=== PATIENT | female | born 1965 | race Two or more races ===

== ENCOUNTER → 2017-11-14 09:11 | Outpatient (CLI) | payer OTHER | END | disposition home or self-care (01) | LOC: LAB 09:11 | DX: N91.2 Amenorrhea, unspecified (principal); N95.1 Menopausal and female climacteric states; R19.00 Intra-abdominal and pelvic swelling, mass and lump, unspecified site; Z34.90 Encounter for supervision of normal pregnancy, unspecified, unspecified trimester; N39.0 Urinary tract infection, site not specified; E55.9 Vitamin D deficiency, unspecified ==

== ENCOUNTER → 2017-11-14 | Outpatient (CLI) | payer OTHER ==
[~2017-11-14] MED LIST: AMOX1TAB12 PO; CELEBREX100 MG PO; DEPAKOTE ER500 MG; DIAZEPAM10 MG PO; DOCUSATE SODIU100 MG PO; NEURONTIN800 MG; NORFLEX100 MG PO; PERCOCET 10-3251 TAB; PERCOCET 5/3251 TAB PO; PROVENTYL; SEROQUEL400 MG; SKELAXIN800 MG PO; TESSALON PERLE100 M1 PO; TORADOL10 MG PO; TUSSIONEX PENNKI5 ML PO; [UNRECOGNIZED DRUG - OTHER]
== END | disposition home or self-care (01) ==
LOC: MAMO-SONO 10:12
DX: Z12.31 Encounter for screening mammogram for malignant neoplasm of breast (principal); Z87.898 Personal history of other specified conditions; N63.20 Unspecified lump in the left breast, unspecified quadrant

== ENCOUNTER 2017-12-13 11:35 | Outpatient (CLI) | payer OTHER | END 2017-12-13 11:42 | disposition home or self-care (01) | LOC: MAMO-SONO 11:35 | DX: N62 Hypertrophy of breast (principal) ==

== ENCOUNTER 2018-01-24 10:53 | Outpatient (CLI) | payer OTHER | END 2018-01-24 17:00 | disposition home or self-care (01) | LOC: MRI 10:53 | DX: R51 Headache (principal) | CPT/HCPCS: 70553; A9579 ==

== ENCOUNTER 2018-04-15 08:05 | Emergency (ER) | payer OTHER ==
[~2018-04-15] VITALS: Ht 157.5 cm; Wt 63.5 kg
[2018-04-15] MEDS ORDERED: CARAFATE1 GM (08:24)
[2018-04-15] MEDS ORDERED: CLARITHROMYCIN500 MG (08:25)
[2018-04-15] MEDS ORDERED: OXCARBAZEPINE300 MG (08:25)
[2018-04-15] MEDS ORDERED: ESGIC 50-325-41 EACH (08:25)
[2018-04-15] MEDS ORDERED: TOPAMAX50 MG (08:25)
[2018-04-15] MEDS ORDERED: PRILOSEC OTC20 MG (08:26)
[2018-04-15] MEDS ORDERED: ZANTAC300 MG (08:26)
[2018-04-15] MEDS ORDERED: ZANAFLEX4 MG (08:26)
[2018-04-15] MEDS ORDERED: SINGULAIR 10MG10 MG (08:26)
[2018-04-15] MEDS ORDERED: CLONAZEPAM2 MG (08:27)
== END 2018-04-15 12:30 | disposition home or self-care (01) ==
LOC: ER 08:05
DX: K52.89 Other specified noninfective gastroenteritis and colitis (principal)

== ENCOUNTER → 2018-04-21 | Emergency (ER) | payer OTHER ==
[~2018-04-21] VITALS: Ht 157.5 cm; Wt 63.5 kg
[~2018-04-21] MED LIST changes: +CARAFATE1 GM; +CLARITHROMYCIN500 MG; +CLONAZEPAM2 MG; +ESGIC 50-325-41 EACH; +OXCARBAZEPINE300 MG; +PRILOSEC OTC20 MG; +SINGULAIR 10MG10 MG; +TOPAMAX50 MG; +ZANAFLEX4 MG; +ZANTAC300 MG
== END | disposition left against medical advice (07) ==
LOC: ER 07:13
DX: K52.89 Other specified noninfective gastroenteritis and colitis (principal); F41.8 Other specified anxiety disorders

== ENCOUNTER 2018-08-12 17:26 | Emergency (ER) | payer OTHER ==
[~2018-08-12] VITALS: Ht 157.5 cm; Wt 59.0 kg
== END 2018-08-12 20:35 | disposition home or self-care (01) ==
LOC: ER 17:26
DX: J06.9 Acute upper respiratory infection, unspecified (principal); N39.0 Urinary tract infection, site not specified

== ENCOUNTER 2018-12-25 09:18 | Outpatient (CLI) | payer OTHER | END 2018-12-25 09:36 | disposition home or self-care (01) | LOC: MRI 09:18 → RAD 10:15 | DX: Z12.31 Encounter for screening mammogram for malignant neoplasm of breast (principal); Z87.898 Personal history of other specified conditions; N62 Hypertrophy of breast; M46.47 Discitis, unspecified, lumbosacral region; M12.9 Arthropathy, unspecified; M19.90 Unspecified osteoarthritis, unspecified site | CPT/HCPCS: 73221 ==

== ENCOUNTER → 2018-12-25 15:34 | Outpatient (CLI) | payer OTHER | END | disposition home or self-care (01) | LOC: LAB 07:45 | DX: E78.2 Mixed hyperlipidemia (principal); I10 Essential (primary) hypertension; E11.9 Type 2 diabetes mellitus without complications; E03.8 Other specified hypothyroidism; M81.0 Age-related osteoporosis without current pathological fracture; Z12.11 Encounter for screening for malignant neoplasm of colon ==

== ENCOUNTER → 2018-12-25 | Outpatient (CLI) | payer OTHER | END | disposition home or self-care (01) | LOC: NUCLEAR 12:17 | DX: M81.0 Age-related osteoporosis without current pathological fracture (principal) ==

== ENCOUNTER 2019-02-09 07:39 | Outpatient (CLI) | payer OTHER | END 2019-02-09 07:57 | disposition home or self-care (01) | LOC: LAB 07:39 | DX: N39.0 Urinary tract infection, site not specified (principal); R07.89 Other chest pain; D68.8 Other specified coagulation defects; E78.2 Mixed hyperlipidemia; I10 Essential (primary) hypertension ==

== ENCOUNTER 2019-12-28 11:41 | Emergency (ER) | payer OTHER ==
[~2019-12-28] VITALS: Ht 157.5 cm; Wt 59.0 kg
[2019-12-28] MEDS ORDERED: SKELAXIN800 MG PO (16:46)
[2019-12-28] MEDS ORDERED: PERCOCET 5-3251 EACH PO (16:46)
[2019-12-28] MEDS ORDERED: MUCINEX DM ER1 EAC1 PO (17:10)
[2019-12-28] MEDS ORDERED: ZITHROMAX500 MG PO (17:10)
== END 2019-12-28 17:28 | disposition home or self-care (01) ==
LOC: ER 11:41
DX: G89.29 Other chronic pain (principal); M54.5 Low back pain; R07.89 Other chest pain; R06.02 Shortness of breath; B96.0 Mycoplasma pneumoniae [M. pneumoniae] as the cause of diseases classified elsewhere; F41.8 Other specified anxiety disorders; Z03.818 Encounter for observation for suspected exposure to other biological agents ruled out

== ENCOUNTER 2020-01-12 09:22 | Outpatient (CLI) | payer OTHER ==
[~2020-01-12 09:22] MED LIST changes: +MUCINEX DM ER1 EAC1 PO; +PERCOCET 5-3251 EACH PO; +ZITHROMAX500 MG PO
== END 2020-01-12 10:00 | disposition home or self-care (01) ==
LOC: MRI 09:22 → TOM 09:22
DX: J44.9 Chronic obstructive pulmonary disease, unspecified (principal)

== ENCOUNTER → 2020-01-15 17:38 | Outpatient (CLI) | payer OTHER | END | disposition home or self-care (01) | LOC: MRI 12:23 | DX: M54.5 Low back pain (principal) | CPT/HCPCS: 72148 ==

== ENCOUNTER → 2020-03-29 | Outpatient (CLI) | payer OTHER | END | disposition home or self-care (01) | LOC: MAMO-SONO 10:35 | PROVIDERS: ATTEND Internal Medicine Cardiovascular Disease | DX: Z12.31 Encounter for screening mammogram for malignant neoplasm of breast (principal); Z87.898 Personal history of other specified conditions; N63.11 Unspecified lump in the right breast, upper outer quadrant ==

== ENCOUNTER → 2020-09-14 14:14 | Outpatient (CLI) | payer OTHER | END | disposition home or self-care (01) | LOC: LAB 14:14 | PROVIDERS: ATTEND Internal Medicine Cardiovascular Disease | DX: E03.8 Other specified hypothyroidism (principal); I10 Essential (primary) hypertension; E11.9 Type 2 diabetes mellitus without complications; Z12.11 Encounter for screening for malignant neoplasm of colon; E55.9 Vitamin D deficiency, unspecified; E78.2 Mixed hyperlipidemia ==

== ENCOUNTER 2020-09-15 11:52 | Outpatient (CLI) | payer OTHER | END 2020-09-15 11:57 | disposition home or self-care (01) | LOC: LAB 11:52 | PROVIDERS: ATTEND Internal Medicine Cardiovascular Disease | DX: I10 Essential (primary) hypertension (principal); E11.9 Type 2 diabetes mellitus without complications; E03.8 Other specified hypothyroidism; E78.2 Mixed hyperlipidemia; Z12.11 Encounter for screening for malignant neoplasm of colon; E55.9 Vitamin D deficiency, unspecified ==

== ENCOUNTER 2021-01-11 11:04 | Outpatient (CLI) | payer OTHER | END 2021-01-11 11:21 | disposition home or self-care (01) | LOC: SONOGRAMA 11:04 | PROVIDERS: ATTEND Internal Medicine Cardiovascular Disease | DX: E03.8 Other specified hypothyroidism (principal); E04.8 Other specified nontoxic goiter ==

== ENCOUNTER 2021-02-18 11:28 | Emergency (ER) | payer OTHER ==
[~2021-02-18] VITALS: Ht 157.5 cm; Wt 59.0 kg
== END 2021-02-18 17:08 | disposition home or self-care (01) ==
LOC: ER 11:28
DX: N61.1 Abscess of the breast and nipple (principal); N64.4 Mastodynia

== ENCOUNTER 2021-04-12 10:04 | Outpatient (CLI) | payer OTHER | END 2021-04-12 10:12 | disposition home or self-care (01) | LOC: MAMO-SONO 10:04 | PROVIDERS: ATTEND Specialist | DX: N61.1 Abscess of the breast and nipple (principal); Z12.31 Encounter for screening mammogram for malignant neoplasm of breast ==

== ENCOUNTER 2021-10-30 09:52 | Emergency (ER) | payer OTHER ==
[~2021-10-30] VITALS: Ht 162.6 cm; Wt 69.9 kg
[2021-10-30] MEDS ORDERED: LEVSIN/SL0.125 MG SL (15:39)
[2021-10-30] MEDS ORDERED: PEPCID AC20 MG PO (15:39)
== END 2021-10-30 15:46 | disposition home or self-care (01) ==
LOC: ER 09:52
DX: R10.11 Right upper quadrant pain (principal); M54.50 Low back pain, unspecified; Z88.6 Allergy status to analgesic agent

== ENCOUNTER 2021-10-31 10:38 | Outpatient (CLI) | payer OTHER ==
[~2021-10-31 10:38] MED LIST changes: +LEVSIN/SL0.125 MG SL; +PEPCID AC20 MG PO
[2021-11-01] MEDS ORDERED: ULTRAM50 MG PO (16:17)
== END 2021-10-31 10:48 | disposition home or self-care (01) ==
LOC: SONOGRAMA 10:38
PROVIDERS: ATTEND Internal Medicine Cardiovascular Disease
DX: E03.9 Hypothyroidism, unspecified (principal)

== ENCOUNTER 2021-11-01 10:29 | Emergency (ER) | payer OTHER ==
[~2021-11-01] VITALS: Ht 157.5 cm; Wt 63.5 kg
[2021-11-01] MEDS ORDERED: ULTRAM50 MG PO (16:17)
== END 2021-11-01 16:23 | disposition home or self-care (01) ==
LOC: ER 10:29
DX: R10.84 Generalized abdominal pain (principal); K75.3 Granulomatous hepatitis, not elsewhere classified; Z88.8 Allergy status to other drugs, medicaments and biological substances; M54.89 Other dorsalgia

== ENCOUNTER 2021-11-02 11:43 | Outpatient (CLI) | payer OTHER ==
[~2021-11-02 11:43] MED LIST changes: +ULTRAM50 MG PO
== END 2021-11-02 11:49 | disposition home or self-care (01) ==
LOC: TOM 11:43
PROVIDERS: ATTEND Internal Medicine Cardiovascular Disease
DX: R07.9 Chest pain, unspecified (principal); J44.9 Chronic obstructive pulmonary disease, unspecified

== ENCOUNTER 2021-12-05 10:44 | Outpatient (CLI) | payer OTHER | END 2021-12-05 10:51 | disposition home or self-care (01) | LOC: MRI 10:44 | PROVIDERS: ATTEND Internal Medicine Cardiovascular Disease | DX: M46.48 Discitis, unspecified, sacral and sacrococcygeal region (principal) | CPT/HCPCS: 72146 ==

== ENCOUNTER 2021-12-26 07:39 | Outpatient (CLI) | payer OTHER | END 2021-12-26 07:52 | disposition home or self-care (01) | LOC: MRI 07:39 | PROVIDERS: ATTEND Anesthesiology | DX: M54.50 Low back pain, unspecified (principal); M54.17 Radiculopathy, lumbosacral region | CPT/HCPCS: 72148 ==

== ENCOUNTER 2022-02-20 06:33 | Outpatient (CLI) | payer OTHER | END 2022-02-20 06:34 | disposition home or self-care (01) | LOC: LAB 06:33 | PROVIDERS: ATTEND Internal Medicine Cardiovascular Disease | DX: R10.9 Unspecified abdominal pain (principal) ==

== ENCOUNTER 2022-02-20 07:24 | Outpatient (CLI) | payer OTHER | END 2022-02-20 07:26 | disposition home or self-care (01) | LOC: SONOGRAMA 07:24 | PROVIDERS: ATTEND Internal Medicine Cardiovascular Disease | DX: R10.9 Unspecified abdominal pain (principal) ==

== ENCOUNTER 2022-04-18 08:46 | Outpatient (CLI) | payer OTHER | END 2022-04-18 08:47 | disposition home or self-care (01) | LOC: NUCLEAR 08:46 | PROVIDERS: ATTEND Orthopaedic Surgery | DX: M81.0 Age-related osteoporosis without current pathological fracture (principal); Z88.5 Allergy status to narcotic agent ==

== ENCOUNTER 2022-04-18 09:13 | Outpatient (CLI) | payer OTHER | END 2022-04-18 09:18 | disposition home or self-care (01) | LOC: RAD 09:13 | PROVIDERS: ATTEND Orthopaedic Surgery | DX: M25.571 Pain in right ankle and joints of right foot (principal) ==

== ENCOUNTER 2022-06-14 09:54 | Outpatient (CLI) | payer OTHER | END 2022-06-14 09:56 | disposition home or self-care (01) | LOC: MAMO-SONO 09:54 | PROVIDERS: ATTEND Internal Medicine Cardiovascular Disease | DX: N63.11 Unspecified lump in the right breast, upper outer quadrant (principal) ==

== ENCOUNTER 2023-07-03 10:45 | Outpatient (CLI) | payer OTHER | END 2023-07-03 10:55 | disposition home or self-care (01) | LOC: MAMO-SONO 10:45 | PROVIDERS: ATTEND Internal Medicine Cardiovascular Disease | DX: Z12.31 Encounter for screening mammogram for malignant neoplasm of breast (principal); N63.12 Unspecified lump in the right breast, upper inner quadrant ==

== ENCOUNTER 2023-07-17 07:09 | Outpatient (CLI) | payer OTHER | END 2023-07-17 07:13 | disposition home or self-care (01) | LOC: MRI 07:09 | DX: Q45.3 Other congenital malformations of pancreas and pancreatic duct (principal); Z88.6 Allergy status to analgesic agent | CPT/HCPCS: 72196; 74182; Q9965; 72197; 74183 ==

== ENCOUNTER 2024-07-06 08:37 | Outpatient (CLI) | payer OTHER | END 2024-07-06 08:47 | disposition home or self-care (01) | LOC: MAMO-SONO 08:37 | PROVIDERS: ATTEND Internal Medicine Cardiovascular Disease | DX: N60.11 Diffuse cystic mastopathy of right breast (principal); N60.12 Diffuse cystic mastopathy of left breast; Z12.31 Encounter for screening mammogram for malignant neoplasm of breast ==